=== PATIENT | female | born 1965 | race Two or more races ===

== ENCOUNTER 2019-08-19 15:33 | Inpatient (IN) | payer OTHER ==
[~2019-08-19] VITALS: Ht 160 cm; Wt 90.7 kg
[2019-09-04] MEDS ORDERED: DICY20TA PO (11:00)
[2019-09-04] MEDS ORDERED: CYMBALTA60 MG PO (11:00)
[2019-09-04] MEDS ORDERED: FOLGARD TABLET1 EACH PO (11:01)
[2019-09-04] MEDS ORDERED: COZAAR50 MG PO (11:01)
[2019-09-04] MEDS ORDERED: FLAX SEED OIL1000 M1 PO (11:02)
[2019-09-04] MEDS ORDERED: CLARITIN10 M1 PO (11:02)
[2019-09-04] MEDS ORDERED: OCUVITE LUTEIN1 EAC1 PO (11:02)
[2019-09-11] MEDS ORDERED: VITAMIN D350000 UNIT PO (08:12)
[2019-09-11] MEDS ORDERED: OMEGA-31000 MG (08:15)
[2019-09-20] MEDS ORDERED: PERCOCET 5-3251 EACH PO (10:00)
[2019-09-20] MEDS ORDERED: INTESTINEX680 M1 PO (10:00)
[2019-09-20] MEDS ORDERED: LEVSIN/SL0.125 MG SL (10:00)
== END 2019-09-20 10:52 | disposition home or self-care (01) | DRG 330 ==
LOC: SURH 09-11 06:53 → O/R 09-11 06:53 → SURG 09-11 06:53 → SURH 09-11 14:27 → SURG 09-15 13:19
PROVIDERS: ADMIT Surgery
PROC: 07TB4ZZ Resection of Mesenteric Lymphatic, Percutaneous Endoscopic Approach (ICD-10-PCS; 2019-09-11)
PROC: 0DTG4ZZ Resection of Left Large Intestine, Percutaneous Endoscopic Approach (ICD-10-PCS; principal; 2019-09-11 08:45)
PROC: 30233N1 Transfusion of Nonautologous Red Blood Cells into Peripheral Vein, Percutaneous Approach (ICD-10-PCS; 2019-09-13)
PROC: BW21Y0Z Computerized Tomography (CT Scan) of Abdomen and Pelvis using Other Contrast, Unenhanced and Enhanced (ICD-10-PCS; 2019-09-18)
DX: C18.6 Malignant neoplasm of descending colon (principal); D62 Acute posthemorrhagic anemia; K91.31 Postprocedural partial intestinal obstruction; E83.42 Hypomagnesemia

== ENCOUNTER 2019-10-09 06:15 | Day surgery (SDC) | payer OTHER ==
[~2019-10-09 06:15] MED LIST: CLARITIN10 M1 PO; COZAAR50 MG PO; CYMBALTA60 MG PO; DICY20TA PO; FLAX SEED OIL1000 M1 PO; FOLGARD TABLET1 EACH PO; INTESTINEX680 M1 PO; LEVSIN/SL0.125 MG SL; OCUVITE LUTEIN1 EAC1 PO; OMEGA-31000 MG; PERCOCET 5-3251 EACH PO; VITAMIN D350000 UNIT PO
[2019-10-09] MEDS ORDERED: PERCOCET 5-3251 EACH PO (08:42)
== END 2019-10-09 11:50 | disposition home or self-care (01) ==
LOC: CIR.AMB 06:15 → ADM 09:45 → CIR.AMB 09:45
DX: C18.6 Malignant neoplasm of descending colon (principal)
CPT/HCPCS: 36561; C1751